=== PATIENT | male | born 1960 | race Caucasian/White ===

== ENCOUNTER 2020-04-10 07:03 | Day surgery (SDC) | payer BC ==
[2020-04-10] MEDS ORDERED: Midazolam 1 MG/ML 2 ML SDV ONE (07:23)
[2020-04-10] MEDS ORDERED: Propofol 200 MG/20 ML SDV ONE (07:23)
[2020-04-10] MEDS ORDERED: fentaNYL 100 MCG/2 ML SDV ONE (07:23)
[2020-04-10] MEDS ORDERED: Dextrose 5%-Lactated Ringers 1,000 ML IV SCH (07:30)
--- NOTE | 2020-04-15 13:41 | OR ---
DATE OF PROCEDURE: 04/10/2020 SURGEON: Roly Ren MD PREOPERATIVE DIAGNOSIS: Indications for screening colonoscopy. POSTOPERATIVE DIAGNOSIS: Normal screening colonoscopy. OPERATIVE PROCEDURE: Flexible colonoscopy. ANESTHESIA: IV sedation. INDICATIONS FOR PROCEDURE: This is a 60-year-old presenting for a screening colonoscopy. He has neither a personal nor family history of colonic neoplasia. Plan is to proceed with colonoscopy with biopsies and/or polypectomy as indicated. Potential risks including bleeding and perforation were discussed, and the patient wishes to proceed. DETAILS OF PROCEDURE: The patient was taken to the operating room, placed in a left lateral decubitus position. IV sedation was administered, after which the initial digital rectal exam was performed and was unremarkable. Colonoscope was then passed into the rectum with retroflexion revealing uncomplicated hemorrhoidal columns. Scope was then eventually passed to the cecum. The prep was quite good with only small amount of liquid stool was present. To that level, there were no diverticula, no areas of colitis, no polyps or other signs of neoplasia. Scope was then withdrawn and the above findings reconfirmed, and the procedure was then concluded. The patient was taken to the recovery room in satisfactory condition. Given the lack of personal or family history of colon neoplasia and normal examination today, the next colonoscopy should be in 10 years. Roly Ren MD /[id number]
== END 2020-04-10 10:21 | disposition home or self-care (01) ==
LOC: JP.SDS 07:03
PROVIDERS: ATTEND Surgery
DX: Z12.11 Encounter for screening for malignant neoplasm of colon (principal); K64.9 Unspecified hemorrhoids; E78.5 Hyperlipidemia, unspecified; Z88.0 Allergy status to penicillin; E66.9 Obesity, unspecified; Z68.30 Body mass index [BMI] 30.0-30.9, adult
CPT/HCPCS: 45378; J2250; J2704; J3010; J7121